=== PATIENT | female | born 1955 | race African-American/Black ===

== ENCOUNTER 2022-04-06 18:28 | Emergency (ER) | payer OTHER ==
[2022-04-06 19:07] VITALS: BP 197/109; PULSE 84; RESP 16; TEMP 97.8; BMI 29.7
== END 2022-04-06 20:19 | disposition home or self-care (01) ==
LOC: JERFT 18:28
DX: S10.86XA Insect bite of other specified part of neck, initial encounter (principal); W57.XXXA Bitten or stung by nonvenomous insect and other nonvenomous arthropods, initial encounter
CPT/HCPCS: 99281-25